=== PATIENT | female | born 1945 | race Caucasian/White ===

== ENCOUNTER 2019-06-05 14:05 | Inpatient (IN) | payer OTHER ==
[~2019-06-05] VITALS: Ht 170.2 cm; Wt 70.4 kg
--- NOTE | ~2019-06-05 | HEMODYNAMI ---
PATIENT:SNOW AYON MEDICAL RECORD: [id number] : 45 [id number] ADMISSION DATE: 06/06/19 Generatedon:06/07/201910:33 Patient name: SNOW AYON Patient #: [id number] SSN: [id number] : 1945 Date of study: 06/07/2019 Page: Of Hemodynamic Procedure Report Patient Data Patient Demographics Procedure consent was obtained First Name: SNOW Gender: Female Last Name: GABO : 1945 Patient #: [id number] Age: 74 year(s) Race: Unknown SSN: [id number] Additional ID: [id number] Contact details [address]: [address] [place] [address] State: [place] City: [place] Zip code: [address] Past Medical History Allergies: No known allergies Admission Admission Data Admission Date: 06/06/2019 Admission Time: 20:19 Admit Source: Other Room #: D.2117 Height (in.): 66.93 BSA: 1.81 (m2) Height (cm.): 170 BMI: 24.22 (kg/m2) Weight (lbs.): 154.32 Weight (kg.): 70 Lab Results Lab Result Date: 06/07/2019 Lab Result Time: 0:00 Biochemistry Name Units Result Min Max BUN mg/dl 11 --(-*--)-- 7 18 Creatinine mg/dl 1.2 --(---*)-- 0.6 1.3 eGFR ml/min 46 *-(----)-- 90 120 NONAFRICAN CBC Name Units Result Min Max Hematocrit % 38.8 *-(----)-- 42 54 Hemoglobin g/dl 12.5 *-(----)-- 13.5 17.5 Procedure Procedure Types Cath Procedure Diagnostic Procedure Sedation Charges Moderate Sedation up to 15 minutes PCI Procedure Coronary Stent Coronary Atherectomy Atherectomy w/Stent Coronary Initial Hemochron ACT Test Procedure Description Procedure Date Procedure Date: 06/07/2019 Procedure Start Time: 10:12 Procedure End Time: 10:30 Procedure Staff Name Function Rian Bolivar MD Performing Physician Dusty Maharaj RN Nurse Nu Engel RN Part Time Receptionist Joselin Turner RT Scrub Jacy Thomas RT Scrub Clint Rodriguez RT Monitor Procedure Data Cath Procedure Fluoroscopy Diagnostic fluoroscopy Total fluoroscopy Time: 3.5 time: 3.5 min min Diagnostic fluoroscopy Total fluoroscopy dose: 221 dose: 221 mGy mGy Contrast Material Contrast Material Type Amount (ml) Isovue 370 44 Entry Location Entry Primary Successful Side Size Upsize Upsize Entry Closure Succes sful Closure Location (Fr) 1 (Fr) 2 (Fr) Remarks Device Remarks Femoral Left 6 Fr Exoseal artery Short Procedure Complications No complications Procedure Medications Medication Administration Route Dosage 0.9% NaCl I.V. 100 ml/hr Oxygen etCO2 Nasal cannula 2 l/min Heparin Flush Bag added to field 1 bags (1000units/500ml NS) Lidocaine 2% added to field 20 Versed I.V. 1 mg Fentanyl I.V. 50 mcg Heparin Bolus I.V. 4000 units Hemodynamics Rest BSA: 1.81 (m2) O2 Consumption: Estimated: 246.16 (ml/min) O2 Consumption indexed : Estimated:136 (ml/min/m) Pre Cath Intra NCS Post Cath Vital Signs Time Heart Resp SPO2 etCO2 NIBP (mmHg) Rhythm Pain Sedation Rate (ipm) (%) (mmHg) Status Level (bpm) 9:59:53 75 13 92 0 136/81(111) NSR 0 (11) 10(A) , No pain 10:04:07 69 16 98 35.1 137/76(118) NSR 0 (11) 10(A) , No pain 10:08:21 68 11 98 32.1 131/76(104) NSR 0 (11) 10(A) , No pain 10:12:33 68 13 98 0.7 130/75(107) NSR 0 (11) 10(A) , No pain 10:16:45 69 12 98 35.9 139/76(121) NSR 0 (11) 9(A) , No pain 10:21:01 69 13 98 34.4 134/71(109) NSR 0 (11) 9(A) , No pain 10:25:11 70 14 99 35.2 148/79(126) NSR 0 (11) 10(A) , No pain 10:29:24 68 13 99 35.1 146/83(129) NSR 0 (11) 10(A) , No pain Medications Time Medication Route Dose Verified Delivered Reason Notes Effectiveness by by 9:58:09 0.9% NaCl I.V. 100 Dusty Dusty Per physician ml/hr Carol Ann Maharaj RN RN 9:58:19 Oxygen etCO2 2 Dusty Dusty for low 02 sats Nasal l/min Carol Ann Maharaj cannula RN RN 9:58:28 Heparin Flush added 1 Dusty Dusty used for Bag to bags Carol Ann Maharaj procedure (1000units/500ml field RN RN NS) 9:58:36 Lidocaine 2% added 20ml Dusty Dusty for local to vial Carol Ann Maharaj anesthetic RN RN 10:09:43 Versed I.V. 1 mg Dusty Dusty for sedation Carol Ann Mahaarj RN RN 10:09:52 Fentanyl I.V. 50 Dusty Dusty for sedation mcg Carol Ann Maharaj RN RN 10:16:04 Heparin Bolus I.V. 4000 Dusty Dusty for units Carol Ann Maharaj anticoagulation RN day habilitation specialist Log Time Note 9:39:58 Informed consent obtained and on chart 9:40:24 Nu Engel RN sent for patient. Start room use. 9:41:00 Procedure Status Urgent Heart Cath (IP). 9:41:02 Time tracking: Regular hours (M-F 7:00 - 5:00) 9:41:06 Plan of Care:Hemodynamics will remain stable., Cardiac rhythm will edgar in stable., Comfort level will be maintained., Respiratory function will remain adequate., Patient/ family verbilizes understanding of procedure., Procedure tolerated without complication., Recovers from procedure without complications.. 9:42:39 H&P Date Dictated: 06/07/2019 New H&P dictated by physician.. 9:43:53 Patient Weight : 154.32 lbs 9:44:10 Patient Height : 66.93 inches 9:48:14 Patient received from Med II to CCL 1 Alert and oriented. Tansferred to table in Supine position. 9:48:15 Warm blankets applied, and iman hugger turned on for patient comfort. 9:48:16 Correct patient and procedure confirmed by team. 9:48:16 ECG and BP/O2 sat monitors applied to patient. 9:50:54 Risk of Mortality: 1.8 9:51:06 Risk of blood transfusion: 3 9:51:10 Risk of LOAN: 8.6 9:51:22 Stress Test: no; N/A BRING BACK PCI 9:52:15 Pre-procedure instructions explained to patient. 9:52:15 Pre-op teaching completed and patient verbalized understanding. 9:52:17 Family in patients room. 9:52:19 Patient NPO since Midnight. 9:52:25 Patient allergic to No known allergies 9:52:27 Is the patient allergic to Iodine/contrast media? No. 9:52:28 Is patient on blood thinner?Yes 9:52:31 ACC The patient was administered the following blood thiners within the last 24 hours: ACCPlavix 9:52:33 Patient diabetic? Yes. 9:52:35 If diabetic: On Metformin? Yes 9:52:38 If on Metformin: Last Dose? 06/04/2019 9:52:41 Previous problem with sedation/anesthesia? No ? 9:52:42 Snore? Yes 9:52:43 Sleep apnea? No 9:52:44 Deviated septum? No 9:52:45 Opens mouth fully? Yes 9:52:46 Sticks out tongue? Yes 9:52:49 Airway obstruction? No ? 9:52:51 Dentures? No ? 9:52:59 Pre procedure: left dorsailis pedis pulse 1+ Palpable, but thready & we ak; easily obliterated 9:53:01 Patient pain scale 0/10 ?. 9:53:26 IV patent on arrival in right hand with 0.9% NaCl at [facility]. 9:54:02 Lab Result : BUN 11 mg/dl 9:54:02 Lab Result : Creatinine 1.2 mg/dl 9:54:02 Lab Result : eGFR NONAFRICAN 46 ml/min 9:54:03 Lab Result : Hemoglobin 12.5 g/dl 9:54:03 Lab Result : Hematocrit 38.8 % 9:54:07 Lab results completed and on chart. 9:54:30 Left groin area was prepped with chlora-prep and draped in sterile count includes the [facility] ion 9:54:39 Alarms reviewed by R. N. 9:54:40 Sharps counted by scrub and verified by R.N. 9:57:53 Use device set CATH PACK 9:57:54 ACIST Syringe (06658) opened to sterile field. 9:57:55 ACIST Hand Control (34345) opened to sterile field. 9:57:55 ACIST Manifold (41798) opened to sterile field. 9:57:56 Medline Cath Pack ([id number]) opened to sterile field. 9:57:56 Bag Decanter (2002S) opened to sterile field. 9:57:56 EMERALD Guide Wire (156-763) opened to sterile field. 9:58:09 0.9% NaCl 100 ml/hr I.V. was administered by Dusty Maharaj RN; Per physician; Verbal order read back and verified. 9:58:19 Oxygen 2 l/min etCO2 Nasal cannula was administered by Dusty Maharaj RN; for low 02 sats; Verbal order read back and verified. 9:58:19 CHOICE PT Extra Support 182cm wire ([id number]) opened to sterile field. 9:58:19 INFLATOR Merit BasixCompak (QL2886) opened to sterile field. 9:58:19 SHEATH 6FR Chireno (BCB448) opened to sterile field. 9:58:28 Heparin Flush Bag (1000units/500ml NS) 1 bags added to field was admini stered by Dusty Maharaj RN; used for procedure; Verbal order read back and verified. 9:58:36 Lidocaine 2% 20ml vial added to field was administered by Dusty layton RN; for local anesthetic; Verbal order read back and verified. 9:58:42 Vital chart was started 10:08:27 --------ALL STOP TIME OUT------ 10:08:28 Final Timeout: patient, procedure, and site verified with staff and rochelle patel. All members of the team are in agreement. 10:08:30 Left groin site verified by team. 10:08:33 Fire Safety Assessment: A--An alcohol-based skin anteseptic being used preoperatively., C--Open oxygen or nitrous oxide is being used., D--An ESU, laser, or fiber-optic light is being used. 10:08:38 Physical assessment completed. ASA score P 2 - A patient with mild syst emic disease as per Rian Bolivar MD. 10:08:41 3a) 45-59 Moderately reduced kidney function. 10:08:44 Maximum allowable contrast dose (3.7 X eGFR X 0.75)128 ml. 10:08:49 Sedation plan: IV Moderate Sedation Medication:Versed, Fentanyl 10::43 Versed 1 mg I.V. was administered by Dusty Maharaj RN; for sedation; Verbal order read back and verified. 10::52 Fentanyl 50 mcg I.V. was administered by Dusty Maharaj RN; for sedati on; Verbal order read back and verified. :: Procedure started. :: Full Disclosure recording started 10:12:10 GUIDE 6FR XBLAD 4.0 catheter ([id number]) opened to sterile field. 10:12:33 Local anesthetic to left femerol artery with Lidocaine 2% by Rian andujar MD.INITIAL ACCESS ONLY 10::41 A 6 Fr Short sheath was inserted into the Left Femoral artery 10:13:55 Zero performed for pressure channel P1 10:15:30 -ADVANC ED 10:15:31 -ADVANC ED 10:16:04 Heparin Bolus 4000 units I.V. was administered by Dusty Maharaj RN; f or anticoagulation; Verbal order read back and verified. 10:16:16 Pre PCI Site: [place] mLAD has 80% stenosis. 10:16:24 6 Fr XBLAD 4 guide catheter was inserted over the wire 10:16:36 CPTES wire advanced. 10:19:05 Inflate balloon Inflation number: 1 A EUPHORA 2.5 x 30 Balloon ([id number]) was prepped and advanced across the Mid LAD , then inflated to 17 JENNI for 0:11 (min:sec) . 10:19:16 Balloon removed over the wire. 10:20:09 LASER ELCA 0.9 Rx atherectomy catheter (171189) opened to sterile field . 10:21:32 Laser pass to mLAD with Fluence of 80 and Rate of 40. 10:21:46 Laser catheter removed. 10:23:17 Laser total treatment time: 44 minutes 0 seconds 10:23:23 Laser total pulses delivered: 1771 10:24:42 Place stent Inflation Number: 2 A GALILEO RX 2.75 x 38 stent ([id number] ) was prepped and advanced across the Mid LAD . The stent was deployed at 21 JENNI for 1:02 (min:sec) . 10:24:45 Stent catheter was removed intact over wire. 10:24:46 Wire removed. 10:24:47 Guide catheter removed. 10:24:53 Contrast amount:Isovue 370 44ml. 10:25:01 Sheath removed intact; hemostasis achieved with Exoseal to the Left Fem oral artery. 10:25:51 EXOSEAL 6Fr (EX600) opened to sterile field. 10:26:12 Procedure ended.(Physican Out) 10:26:23 Fluoroscopy time 03.50 minutes. 10:26:30 Flurop Dose total: 221 10:26:30 Fluoroscopy dose: 221 mGy 10:26:36 Dose Area Product 8559 mGy/cm. 10:26:40 Maximum allowable dose exceeded? No. 10:26:43 Sharps counted by scrub and verified by R.N. 10:26:44 Insertion/operative site no bleeding no hematoma. 10:26:48 Post-op/insertion site Left Femoral artery dressed using a 4 x 4 and Te gaderm. 10:26:52 Post left femerol artery:stable 10:26:53 Post Procedure Pulses reassessed and unchanged 10:27:02 Post procedure: left dorsailis pedis pulse 1+ Palpable, but thready & w eak; easily obliterated. 10:27:22 ACT drawn and resulted at 327 seconds. (normal therapeutic range 180-24 0 seconds). 10:29:30 Procedure type changed to Cath procedure, Diagnostic procedure, Sedatio n Charges, Moderate Sedation up to 15 minutes, PCI procedure, Coronary Stent, Coronary Atherectomy, Atherectomy w/Stent Coronary Initial, Hemochron ACT Test 10:30:15 Procedure and supply charges have been captured, reviewed, submitted an d are correct. 10:30:20 Procedure Complication : No complications 10:30:23 Vital chart was stopped 10:30:26 [facility] Findings: MVD- PCI performed (see procedure note) 10:30:31 Operative report dictated upon procedure completion. 10:30:32 See physician's report for complete and final results. 10:30:33 Report given to Pre/Post Procedure Room. 10:30:35 Patient transfered to Pre/Post Procedure Room with Stretcher. 10:30:37 Procedure ended. 10:30:37 Full Disclosure recording stopped 10:30:40 End room use (Document Last) Intervention Summary Intervention Notes Time ActionType Lesion and Equipment Used Action# Pressure Duration Attributes 10:19:05 Inflate Mid LAD EUPHORA 2.5 x 1 17 00:11 balloon 30 Balloon ([id number]) 10:24:42 Place stent Mid LAD GALILEO RX 2.75 x 2 21 01:02 38 stent ([id number]) Device Usage Item Name Manufacture Quantity Catalog Number Hospital Part Current M inimal Lot# / Charge Number Stock Stock Serial# Code ACIST Syringe Acist 1 51283 791905 583990 464529 2 0 (17505) Medical Systems Inc ACIST Hand Acist 1 19755 306294 351822 052891 5 Control Medical (66444) Systems Inc ACIST Manifold Acist 1 40932 360616 844161 772466 5 (42424) Medical Systems Inc Medline Cath Medline 1 [id number] 603035 72861 532882 5 Pack ([id number]) Bag Decanter Microtek 1 653917 32074 428904 5 (2002S) C8 MediSensors. EMERALD Guide Cardinal 1 502-186 085496 819237 032075 5 Wire (502455) Health CHOICE PT [place] 1 [id number] 297608 918536 305302 5 Extra Support Scientific 182cm wire ([id number]) INFLATOR Merit Merit 1 KP1548 345324 096940 977804 1 5 Gigit (JF7676) SHEATH 6FR Terumo 1 AGL530 558359 417443 021511 4 0 Chireno (NEJ941) GUIDE 6FR Cardinal 1 [id number] 112438 717985 119430 3 XBLAD 4.0 Health catheter ([id number]) EUPHORA 2.5 x Medtronic 1 [id number] 671349 037605 858990 5 [id number] 30 Balloon ([id number]) LASER ELCA 0.9 Ashley 1 110-004 224702 734038 902656 5 Rx atherectomy Healthcare catheter (475308) (958784) GALILEO RX 2.75 x Medtronic 1 [id number] 460935 7604342 820023 5 [id number] 38 stent ([id number]) EXOSEAL 6Fr Cardinal 1 EX600 017385 931497 465038 1 0 (EX600) Health Signature Audit [place] Stage Time Signature Unsigned Intra-Procedure 06/07/2019 Dusty 10:32:14 AM Carol Ann SILVERMAN Intra-Procedure 06/07/2019 Clint Rodriguez RT(R) 10:32:41 AM Intra-Procedure 06/07/2019 Rian Bolivar 10:33:03 AM [facility] [address] [place] [address]
--- NOTE | ~2019-06-05 | OP ---
PATIENT NAME: SNOW AYON MEDICAL RECORD: [id number] :45 LOCATION:[facility]STIE McnultyCL02 ADMISSION DATE:06/06/19 SURGEON: KRISTEN GRIGSBY MD DATE OF OPERATION: 06/07/2019 DATE OF SERVICE: 06/07/2019 PROCEDURES: 1. PTCA stent, laser atherectomy LAD. 2. Selective coronary angiography. INDICATION: Non-Q-wave myocardial infarction. DESCRIPTION OF PROCEDURE: After informed consent was obtained and after detailed explanation of risks, benefits as well as alternative therapies, the patient elected to proceed with angiogram and angioplasty. The left femoral area was prepped and draped in normal sterile fashion. Left femoral artery was cannulated via modified Seldinger technique with placement of 6-Lao sheath. All catheters exchanged through this sheath. FINDINGS: The left anterior descending has a 90% stenosis throughout the proximal vessel. Part of this is in-stent restenosis, addressed with a laser atherectomy catheter, 0.9 catheter, multiple passes were made at 80/40. Stenting was undertaken with a 2.75 x 38 mm Ambrosio. Result was 0% residual stenosis. OVERALL IMPRESSION: Successful percutaneous transluminal coronary angioplasty stent of the left anterior descending going from 90% initial stenosis to 0% residual. TRANSINT:[id number] Voice Confirmation ID: [id number] DOCUMENT ID: [id number] KRISTEN GRIGSBY MD CC: [id number] DICTATION DATE: 06/07/19 1033 BATHHOUSE KEEPER: 06/07/19 1124 ADM IN [facility] [address] [place] [address]
--- NOTE | ~2019-06-05 | DS ---
PATIENT:SNOW VNIES :45 MEDICAL RECORD: [id number] DISCHARGE SUMMARY ADMISSION DATE: 06/06/19 DISCHARGE DATE: 06/07/19 DIAGNOSES: 1. Non-Q-wave myocardial infarction. 2. Percutaneous transluminal coronary angioplasty stent right coronary artery and left anterior descending this admission. 3. Hypertension. 4. Hyperlipidemia. 5. Noninsulin-dependent diabetes. HOSPITAL COURSE: Mrs. Vines presents with a non-Q-wave myocardial infarction, underwent cardiac catheterization revealing critical disease of the RCA and LAD, underwent successful PTCA stent of both territories, was discharged home. Follow up in 1 month with the addition of Pravachol, Plavix, and aspirin to her medical regimen. TRANSINT:[id number] Voice Confirmation ID: [id number] DOCUMENT ID: [id number] KRISTEN GRIGSBY MD CC: [id number] DICTATION DATE: 06/07/19 1032 KNIT GOODS CUTTER HAND: 06/08/19 0220 DIS IN 06/07/19 [facility] [address] [place] [address]
--- NOTE | ~2019-06-05 | HEMODYNAMI ---
PATIENT:SNOW AYON MEDICAL RECORD: [id number] : 45 [facility] ADMISSION DATE: 06/05/19 Generatedon:06/06/20198:39 Patient name: SNOW AYON Patient #: [id number] SSN: DO B: 1945 Date of study: 06/06/2019 Page: Of Hemodynamic Procedure Report Patient Data Patient Demographics Procedure consent was obtained First Name: SNOW Gender: Female Last Name: GABO : 1945 Patient #: [id number] Age: 74 year(s) Race: Unknown Additional ID: [id number] Contact details [address]: [address] [place] [address] State: [place] City: [place] Zip code: [address] Past Medical History Allergies: No known allergies Admission Admission Data Admission Date: 06/05/2019 Admission Time: 16:25 Admit Source: Other Room #: D.2117 Procedure Procedure Types Cath Procedure Diagnostic Procedure LHC LHC w/Coronaries PCI Procedure Coronary Stent Coronary Stent Initial Procedure Description Procedure Date Procedure Date: 06/06/2019 Procedure Start Time: 8:00 Procedure End Time: 8:30 Procedure Staff Name Function Zaira Smith RT Scrub Nu Engel RN Nurse Rian Bolivar MD Performing Physician Clint Rodriguez RT Monitor Procedure Data Cath Procedure Fluoroscopy Diagnostic fluoroscopy Total fluoroscopy Time: 5.3 time: 5.3 min min Diagnostic fluoroscopy Total fluoroscopy dose: 311 dose: 311 mGy mGy Contrast Material Contrast Material Type Amount (ml) Isovue 370 105 Entry Location Entry Primary Successful Side Size Upsize Upsize Entry Closure Succes sful Closure Location (Fr) 1 (Fr) 2 (Fr) Remarks Device Remarks Femoral Right 6 Fr 6 Fr Exoseal artery Short Short Diagnostic catheters Device Type Used For End Catheter Placement MULTIPACK Pigtail 5 Fr LV Angiography catheter MULTIPACK JL 4.0 5Fr Left Coronary catheter Angiography MULTIPACK 3DRC 5Fr Right Coronary catheter Angiography Procedure Complications No complications Procedure Medications Medication Administration Route Dosage Oxygen etCO2 Nasal cannula 2 l/min Lidocaine 2% added to field 20 Heparin Flush Bag added to field 2 bags (1000units/500ml NS) 0.9% NaCl I.V. 100 ml/hr Versed I.V. 1 mg Fentanyl I.V. 50 mcg Heparin Bolus I.V. 4000 units Integrilin (Bolus I.V. 6.2 ml 2mg/ml) Nitroglycerin IC/IA I.C. 200 mcg Nitroglycerin IC/IA I.C. 200 mcg Cardene I.C. 300 mcg 0.9% NaCl I.V. bolus 250 ml Cardene I.C. 300 mcg Integrilin Drip I.V. drip 11.2 ml/hr (75mg/100ml) Versed I.V. 1 mg Fentanyl I.V. 50 mcg Hemodynamics Rest Heart Rate: 71 (bpm) Snapshots Pre Cath Intra NCS Post Cath Vital Signs Time Heart Resp SPO2 etCO2 NIBP (mmHg) Rhythm Pain Sedation Rate (ipm) (%) (mmHg) Status Level (bpm) 7:44:16 71 19 94 0 158/84(141) NSR 0 (11) 10(A) , No pain 7:48:36 72 19 94 0 161/92(136) NSR 0 (11) 10(A) , No pain 7:52:58 70 7 98 0 144/80(124) NSR 0 (11) 10(A) , No pain 7:57:12 69 13 96 38.6 138/82(110) NSR 0 (11) 10(A) , No pain 8:01:30 70 12 98 38.6 137/67(109) NSR 0 (11) 10(A) , No pain 8:05:41 70 19 96 43.2 124/67(106) NSR 0 (11) 9(A) , No pain 8:09:50 73 13 97 17.4 135/78(112) NSR w/ ST 0 (11) 9(A) Elevation , No pain 8:13:58 70 17 97 28.8 73/47(60) NSR w/ ST 0 (11) 9(A) Elevation , No pain 8:18:00 57 12 95 33.3 65/42(50) NSR w/ ST 0 (11) 9(A) Elevation , No pain 8:21:58 56 12 96 36.4 78/47(60) NSR w/ ST 0 (11) 9(A) Elevation , No pain 8:26:44 67 21 95 39.4 102/56(84) NSR w/ ST 0 (11) 10(A) Elevation , No pain Medications Time Medication Route Dose Verified Delivered Reason Notes Effectiveness by by 7:50:35 Oxygen etCO2 2 Rian Judge used for Nasal l/min Osmel Engel RN procedure cannula 7:50:41 Lidocaine 2% added 20ml Rian Modi for local to vial Osmel Bolivar MD anesthetic field 7:50:46 Heparin Flush added 2 Rianalexis Modi used for Bag to bags Osmel Bolivar MD procedure (1000units/500ml field NS) 7:50:55 0.9% NaCl I.V. 100 Rian Seguraie Per physician ml/hr Osmel Engel RN 7:58:48 Versed I.V. 1 mg Rian Judge for sedation Osmel Engel RN 7:58:54 Fentanyl I.V. 50 Rian Judge for sedation mcg Osmel Engel RN 8:04:24 Versed I.V. 1 mg Rian Modi for sedation Osmel Bolivar MD 8:04:27 Fentanyl I.V. 50 Rian Modi for sedation mcg Osmel Bolivar MD 8:07:26 Heparin Bolus I.V. 4000 Rian Judge for verifi ed units Osmel Engel RN anticoagulation with dr bolivar 8:11:25 Nitroglycerin I.C. 200 Rian Modi for IC/IA mcg Osmel Bolivar MD vasodilation 8:12:10 Integrilin I.V. 6.2 Rian Judge for wasted (Bolus 2mg/ml) ml Osmel Engel RN antiplatelet 3.8 ml therapy of vial 8:12:43 Nitroglycerin I.C. 200 Rian Modi for IC/IA mcg Osmel Bolivar MD vasodilation 8:14:20 Cardene I.C. 300 Rian Rian for mcg Osmel Bolivar MD vasodilation 8:19:00 0.9% NaCl I.V. 250 Rian Seguraie For hypotension bolus ml Osmel Engel RN 8:21:09 Cardene I.C. 300 Rian Rian for amy Bolivar MD vasodilation 8:22:49 Integrilin Drip I.V. 11.2 Rian Seguralius enrique for (75mg/100ml) drip ml/hr Osmel Engel RN antiplatelet therapy Procedure Log Time Note 7:29:27 Diagnostic Cath Status : Urgent 7:30:04 Nu Engel RN sent for patient. Start room use. 7:30:05 Time tracking: Regular hours (M-F 7:00 - 5:00) 7:30:09 Plan of Care:Hemodynamics will remain stable., Cardiac rhythm will remain stable., Comfort level will be maintained., Respiratory function will remain adequate., Patient/ family verbilizes understanding of procedure., Procedure tolerated without complication., Recovers from procedure without complications.. 7:33:33 Risk of Mortality: 1.8 7:33:37 Risk of blood transfusion: 3.0 7:33:42 Risk of LOAN: 8.6 7:35:16 3a) 45-59 Moderately reduced kidney function. 7:37:01 Patient received from Med II to CCL 1 Alert and oriented. Tansferred to table in Supine position. 7:37:05 Signed procedure consent form obtained from patient. 7:37:24 Correct patient and procedure confirmed by team. 7:37:24 Warm blankets applied, and iman hugger turned on for patient comfort. 7:37:25 ECG and BP/O2 sat monitors applied to patient. 7:43:09 Vital chart was started 7:43:10 Baseline sample Acquired. 7:43:15 Rhythm: sinus rhythm 7:43:17 Full Disclosure recording started 7:43:21 H&P Date Dictated: 06/06/2019 New H&P dictated by physician.. 7:43:22 Pre-procedure instructions explained to patient. 7:43:23 Pre-op teaching completed and patient verbalized understanding. 7:43:26 Family unavailable. 7:43:28 Patient NPO since Midnight. 7:43:39 Patient allergic to No known allergies 7:43:41 Is the patient allergic to Iodine/contrast media? No. 7:43:45 Is patient on blood thinner?Yes 7:43:48 ACC The patient was administered the following blood thiners within the last 24 hours: ACCPlavix 7:43:52 Patient not . Patient is over age 55. 7:43:54 Previous problem with sedation/anesthesia? No ? 7:43:56 Snore? Yes 7:43:58 Sleep apnea? No 7:43:59 Deviated septum? No 7:44:00 Opens mouth fully? Yes 7:44:14 Sticks out tongue? Yes 7:44:16 Airway obstruction? Yes ? 7:44:18 Dentures? No ? 7:44:23 If diabetic: On Metformin? Yes 7:44:23 Patient diabetic? Yes. 7:44:26 If on Metformin: Last Dose? 06/04/2019 7:44:35 Patient pain scale 0/10 ?. 7:44:38 IV patent on arrival in right hand with 0.9% NaCl at [facility]. 7:44:45 Right groin area was prepped with chlora-prep and draped in sterile fashion 7:44:46 Sharps counted by scrub and verified by R.N. 7:44:46 Alarms reviewed by R. N. 7:46:19 Pre procedure: right dorsailis pedis pulse 2+ Normal; easily identifiable; not easily obliterated 7:46:28 Lab results completed and on chart. 7:50:35 Oxygen 2 l/min etCO2 Nasal cannula was administered by Nu Engel RN; used for procedure; Verbal order read back and verified. 7:50:41 Lidocaine 2% 20ml vial added to field was administered by Rian Bolivar MD; for local anesthetic; Verbal order read back and verified. 7:50:46 Heparin Flush Bag (1000units/500ml NS) 2 bags added to field was administered by Rian Bolivar MD; used for procedure; Verbal order read back and verified. 7:50:55 0.9% NaCl 100 ml/hr I.V. was administered by Nu Engel RN; Per physician; Verbal order read back and verified. 7:57:19 Physician arrived 7:57:20 --------ALL STOP TIME OUT------ 7:57:21 Final Timeout: patient, procedure, and site verified with staff and physician. All members of the team are in agreement. 7:57:25 Right groin site verified by team. 7:57:29 Fire Safety Assessment: A--An alcohol-based skin anteseptic being used preoperatively., C--Open oxygen or nitrous oxide is being used., D--An ESU, laser, or fiber-optic light is being used. 7:57:56 Maximum allowable contrast dose (3.7 X eGFR X 0.75)127.65 ml. 7:58:01 Physical assessment completed. ASA score P 2 - A patient with mild systemic disease as per Rian Bolivar MD. 7:58:05 Sedation plan: IV Moderate Sedation Medication:Versed, Fentanyl 7:58:25 Use device set Femoral Dx 7:58:26 Bag Decanter (2002S) opened to sterile field. 7:58:26 ACIST Syringe (78585) opened to sterile field. 7:58:27 Medline Cath Pack ([id number]) opened to sterile field. 7:58:30 ACIST Manifold (24875) opened to sterile field. 7:58:30 ACIST Hand Control (24448) opened to sterile field. 7:58:31 Tegaderm 4 x 4 (1626W) opened to sterile field. 7:58:31 DIAGNOSTIC Multipack 5Fr catheter set ([id number]) opened to sterile field. 7:58:34 EMERALD Guide Wire (549-799) opened to sterile field. 7:58:48 Versed 1 mg I.V. was administered by Nu Engel RN; for sedation; Verbal order read back and verified. 7:58:54 Fentanyl 50 mcg I.V. was administered by Nu Engel RN; for sedation; Verbal order read back and verified. 7:59:46 Procedure started. 8:00:02 Local anesthetic to right femoral artery with Lidocaine 2% by Rian Bolivar MD.INITIAL ACCESS ONLY 8:00:12 A 6 Fr Short sheath was inserted into the Right Femoral artery 8:01:44 A MULTIPACK Pigtail 5 Fr catheter was advanced over the wire and used for LV Angiography. 8:01:49 LV angiography performed. 8:01:51 LV gram done using BARRETO 8:01:56 EF : 55 % 8:01:59 Catheter removed. 8:02:05 A MULTIPACK JL 4.0 5Fr catheter was advanced over the wire and used for Left Coronary Angiography. 8:02:08 LCA angiography performed. 8:04:24 Versed 1 mg I.V. was administered by Rian Bolivar MD; for sedation; Verbal order read back and verified. 8:04:27 Fentanyl 50 mcg I.V. was administered by Rian Bolivar MD; for sedation; Verbal order read back and verified. 8:05:13 Catheter removed. 8:05:19 A MULTIPACK 3DRC 5Fr catheter was advanced over the wire and used for Right Coronary Angiography. 8:05:23 RCA angiography performed. 8:05:24 Catheter removed. 8:05:29 ACC Pre-intervention CIARRA Flow is 3. 8:05:47 Pre PCI Site: [place] mRCA has 99% stenosis. 8:07:26 Heparin Bolus 4000 units I.V. was administered by Nu Engel RN; for anticoagulation; verified with dr bolivar Verbal order read back and verified. 8:10:54 Balloon removed over the wire. 8:11:25 Place stent Inflation Number: 1 A GALILEO RX 3.5 x 12 stent ([id number]) was prepped and advanced across the Mid RCA . The stent was deployed at 14 JENNI for 0:05 (min:sec) 0. 8:11:25 Nitroglycerin IC/IA 200 mcg I.C. was administered by Rian Bolivar MD; for vasodilation; Verbal order read back and verified. 8:11:30 SHEATH 6FR [place] (ZRZ120) opened to sterile field. 8:12:10 Integrilin (Bolus 2mg/ml) 6.2 ml I.V. was administered by Nu Engel RN; for antiplatelet therapy; wasted 3.8 ml of vial Verbal order read back and verified. 8:12:43 Nitroglycerin IC/IA 200 mcg I.C. was administered by Rian Bolivar MD; for vasodilation; Verbal order read back and verified. 8:13:17 Stent catheter was removed intact over wire. 8:14:20 Cardene 300 mcg I.C. was administered by Rian Bolivar MD; for vasodilation; Verbal order read back and verified. 8:15:30 SHEATH 6FR [place] (RGX768) opened to sterile field. 8:15:52 Wire removed. 8:19:00 0.9% NaCl 250 ml I.V. bolus was administered by Nu Engel RN; For hypotension; Verbal order read back and verified. 8:21:09 Cardene 300 mcg I.C. was administered by Rian Bolivar MD; for vasodilation; Verbal order read back and verified. 8:22:49 Integrilin Drip (75mg/100ml) 11.2 ml/hr I.V. drip was administered by Nu Engel RN; for antiplatelet therapy; Verbal order read back and verified. 8:23:44 ACT drawn and resulted at ? seconds. (normal therapeutic range 180-240 seconds). 8:23:56 EXOSEAL 6Fr (EX600) opened to sterile field. 8:25:16 Place stent Inflation Number: 2 A GALILEO RX 3.5 x 18 stent ([id number]) was prepped and advanced across the Mid RCA 0. The stent was deployed at 14 JENNI for 0:12 (min:sec) . 8:27:22 Sheath removed intact; hemostasis achieved with Exoseal to the Right Femoral artery. 8:27:22 Sheath upsized to a 6 Fr Short. 8:27:25 Procedure ended.(Physican Out) 8:27:53 act out of range 8:28:12 Fluoroscopy time 05.30 minutes. 8:28:19 Fluoroscopy dose: 311 mGy 8:28:19 Flurop Dose total: 311 8:28:32 Dose Area Product 12371 mGy/cm. 8:29:17 Contrast amount:Isovue 370 105ml. 8:29:22 Maximum allowable dose exceeded? Yes. 8:29:23 Sharps counted by scrub and verified by R.N. 8:29:25 Insertion/operative site no bleeding no hematoma. 8:29:27 Post-op/insertion site Right Femoral artery dressed using a 4 x 4 and Tegaderm. 8:29:30 Post right femoral artery:stable 8:29:32 Post Procedure Pulses reassessed and unchanged 8:29:34 Post procedure: right dorsailis pedis pulse 2+ Normal; easily identifiable; not easily obliterated. 8:29:38 Post procedure rhythm: sinus rhythm 8:29:46 Post procedure instruction explained to patient.Patient verbalizes understanding. 8:29:48 Procedure and supply charges have been captured, reviewed, submitted and are correct. 8:29:52 Procedure Complication : No complications 8:29:54 Vital chart was stopped 8:30:06 [facility] Findings: MVD- MD will discuss options w/ pt 8:30:08 See physician's report for complete and final results. 8:30:08 Operative report dictated upon procedure completion. 8:30:14 Report given to PCU. 8:30:34 Patient transfered to PCU with Bed. 8:30:36 Full Disclosure recording stopped 8:30:36 Procedure ended. 8:30:39 End room use (Document Last) 8:34:28 Procedure type changed to Cath procedure, Diagnostic procedure, LHC, C w/Coronaries, PCI procedure, Coronary Stent, Coronary Stent Initial 8:37:28 Admit Source: Other Intervention Summary Intervention Notes Time ActionType Lesion and Equipment Used Action# Pressure Duration Attributes 8:11:25 Place stent Mid RCA GALILEO RX 3.5 x 1 14 00:05 12 stent ([id number]) 8:25:16 Place stent Mid RCA GALILEO RX 3.5 x 2 14 00:12 18 stent ([id number]) Device Usage Item Name Manufacture Quantity Catalog Hospital Part [facility] Lot# / Number Charge Number Stock Stock Serial# Code ACIST Syringe Acist 1 24403 819390 242581 409852 20 (28140) Medical Systems Inc Bag Decanter Microtek 1 364684 64632 237918 5 (2001S) Medical Inc. Medline Cath Medline 1 [id number] 973152 93701 532527 5 Pack ([id number]) ACIST Hand Acist 1 89466 421845 095940 189823 5 Control Medical (36392) Systems Inc ACIST Manifold Acist 1 08946 532966 563376 732651 5 (50512) Medical Systems Inc DIAGNOSTIC Cardinal 1 NZ1310 923068 87125 610278 30 Multipack 5Fr Health catheter set (UY1159) Tegaderm 4 x 4 3M 1 1626W 584721 985567 977606 5 (1626W) EMERALD Guide Cardinal 1 502-455 441105 653758 241760 5 Wire (502-455) Health MULTIPACK Cardinal 1 791959 5 Pigtail 5 Fr Health catheter MULTIPACK JL Cardinal 1 576321 5 4.0 5Fr Health catheter MULTIPACK 3DRC Cardinal 1 901534 5 5Fr catheter Health GALILEO RX 3.5 x Medtronic 1 [id number] 596560 1894536 270964 5 [id number] 12 stent ([id number]) SHEATH 6FR Terumo 2 SXC078 198938 612048 129047 40 [place] (THG067) EXOSEAL 6Fr Cardinal 1 EX600 556668 968148 630264 10 (EX600) Health GALILEO RX 3.5 x Medtronic 1 [id number] 561795 0476876 485728 5 [id number] 18 stent ([id number]) Signature Audit [place] Stage Time Signature Unsigned Intra-Procedure 06/06/2019 Nu Engel RN 8:38:03 AM Intra-Procedure 06/06/2019 Clint PATTEN(R) 8:39:27 AM Intra-Procedure 06/06/2019 Rian Bolivar 8:39:47 AM [place] [id number] [place] [id number]
[2019-06-05 14:30] VITALS: BP 140/81
[2019-06-05 14:44] LABS: APTT 29.2 SECONDS (22.8-39.4); INR 1.08 (0.85-1.17); PROTIME 13.5 SECONDS (11.6-15.0)
[2019-06-05 14:46] LABS: CALC OSMOLALITY 283 mosm/kg (275-300); CALCIUM 8.8 mg/dL (8.5-10.1); CARBON DIOXIDE 29.2 mmol/L (21.0-32.0); CHLORIDE - SERUM 101 mmol/L (98-107); CREATININE - SERUM 1.2 mg/dL (0.6-1.3); GLUCOSE 250 mg/dL (74-106); POTASSIUM - SERUM 4.1 mmol/L (3.5-5.1); SODIUM 138 mmol/L (136-145); UREA NITROGEN 13 mg/dL (7-18); eGFR NON AFRICAN AMERICAN 46 mL/min (90-120)
[2019-06-05 14:51] LABS: BASOPHILS 0.1 % (0-2); EOSINOPHILS 0.3 % (0-7); HEMATOCRIT 41.7 % (36.0-48.0); HEMOGLOBIN 13.6 g/dL (12-16); IMMATURE GRANULOCYTES 0.1 % (0-5); LYMPHOCYTES 13.3 % (15-50); MCH 31.3 pg (26.0-34.0); MCHC 32.6 g/dL (31.0-37.0); MCV 96.1 fL (80.0-100.0); MEAN PLATELET VOLUME 11.5 fL (7.4-10.4); MONOCYTES 3.8 % (2-11); NEUTROPHILS 82.4 % (40-80); PLATELET COUNT 238 10x3/uL (130-400); RBC 4.34 10x6/uL (4.00-5.40); RDW 12.7 % (11.5-14.5); WBC 7.6 10x3/uL (4.8-10.8)
[2019-06-05 15:00] VITALS: BP 127/73
[2019-06-05 15:09] LABS: ALBUMIN 3.4 g/dL (3.4-5.0); ALKALINE PHOSPHATASE 99 U/L (46-116); ALT (SGPT) 20 U/L (10-68); CKMB 2.9 U/L (0.0-3.6); CREATINE KINASE 88 UL (21-215); MAGNESIUM - SERUM 1.8 mg/dL (1.8-2.4); PROTEIN - SERUM 6.8 g/dL (6.4-8.2)
[2019-06-05 15:14] LABS: TROPONIN-I 0.347 ng/mL (0.000-0.060)
[2019-06-05 15:30] VITALS: BP 132/81
[2019-06-05 16:09] VITALS: BP 146/97
--- NOTE | 2019-06-05 16:10 | NUR ---
20G NOTED TO RFA PT REPORTS WAS PUT IN @ [facility] , FLUSHED WITHOUT DIFFICULTY, CON'T TO MONITOR.
--- NOTE | 2019-06-05 16:30 | NUR ---
FSBS 206, NO COVERAGE GIVEN R/T PT NOT EATING/NPO STATUS.
--- NOTE | 2019-06-05 19:50 | NUR ---
PATIENT TRANSFERRED FROM ER. PATIENT IS ALERT AND ORIENTED, RESTING COMFORTABLY IN BED. RESPIRATIONS ARE EVEN AND UNLABORED. NO S/S OF DISTRESS. NO C/O PAIN. CALL LIGHT WITHIN REACH. DENIES NEEDS. WILL CPOC.
[2019-06-05] MEDS ORDERED: CELEBREX 100 M100 MG PO (19:57)
[2019-06-05] MEDS ORDERED: AMIODARONE HCL200 MG PO (19:57)
[2019-06-05] MEDS ORDERED: TRAMADOL 200 MG (19:57)
[2019-06-05] MEDS ORDERED: NORVASC10 MG PO (19:58)
[2019-06-05] MEDS ORDERED: GLUCOPHAGE500 MG PO (19:58)
[2019-06-05] MEDS ORDERED: LOTENSIN40 MG PO (19:58)
[2019-06-05] MEDS ORDERED: GABAPENTIN300 MG PO (19:58)
[2019-06-05 21:31] LABS: CKMB 2.4 U/L (0.0-3.6); CREATINE KINASE 76 UL (21-215)
[2019-06-05 21:35] LABS: TROPONIN-I 0.475 ng/mL (0.000-0.060)
[2019-06-05 22:45] VITALS: BP 129/77; Ht 170.2 cm; Wt 70.4 kg
[2019-06-06] VITALS: BP 107/60
--- NOTE | 2019-06-06 02:12 | NUR ---
PATIENT APPEARS TO BE SLEEPING RESPIRATIONS ARE EVEN AND UNLABORED. NO S/S OF DISTRESS. CALL LIGHT WITHIN REACH, WILL CPOC.
[2019-06-06 02:49] LABS: BASOPHILS 0.4 % (0-2); EOSINOPHILS 1.6 % (0-7); HEMATOCRIT 38.8 % (36.0-48.0); HEMOGLOBIN 12.5 g/dL (12-16); IMMATURE GRANULOCYTES 0.1 % (0-5); LYMPHOCYTES 44.1 % (15-50); MCH 31.2 pg (26.0-34.0); MCHC 32.2 g/dL (31.0-37.0); MCV 96.8 fL (80.0-100.0); MEAN PLATELET VOLUME 11.3 fL (7.4-10.4); NEUTROPHILS 42.8 % (40-80); PLATELET COUNT 227 10x3/uL (130-400); RBC 4.01 10x6/uL (4.00-5.40); RDW 12.9 % (11.5-14.5)
[2019-06-06 03:10] LABS: ALKALINE PHOSPHATASE 72 U/L (46-116); ALT (SGPT) 20 U/L (10-68); BILIRUBIN - TOTAL 0.89 mg/dL (0.2-1.3); CALCIUM 8.3 mg/dL (8.5-10.1); CARBON DIOXIDE 29.1 mmol/L (21.0-32.0); CHLORIDE - SERUM 104 mmol/L (98-107); CKMB 2.6 U/L (0.0-3.6); CREATINE KINASE 86 UL (21-215); CREATININE - SERUM 1.2 mg/dL (0.6-1.3); POTASSIUM - SERUM 4.4 mmol/L (3.5-5.1); PROTEIN - SERUM 5.9 g/dL (6.4-8.2); SODIUM 139 mmol/L (136-145); UREA NITROGEN 11 mg/dL (7-18); eGFR NON AFRICAN AMERICAN 46 mL/min (90-120)
[2019-06-06 03:11] LABS: CALC OSMOLALITY 280 mosm/kg (275-300); GLUCOSE 170 mg/dL (74-106); TROPONIN-I 0.651 ng/mL (0.000-0.060)
--- NOTE | 2019-06-06 07:30 | NUR ---
PRE-OPS GIVEN. TO MOTOR HOTEL MANAGER BY BED.
--- NOTE | 2019-06-06 09:01 | NUR ---
BACK FROM POOL HALL INSPECTOR. VS WNL. RIGHT GROIN STABLE WITHOUT BLEEDING OR HEMATOMA NOTED. WILL MONITOR.
--- NOTE | 2019-06-06 10:40 | HP ---
PATIENT: SNOW VINES MEDICAL RECORD: [id number] ACCOUNT: [id number] LOCATION:[address] : 45 ADMISSION DATE: 06/05/19 PCP: RANDALL ORELLANA HISTORY AND PHYSICAL EXAMINATION DIAGNOSES: 1. Non-Q-wave myocardial infarction. 2. Coronary artery disease. 3. Hypertension. 4. Hyperlipidemia. HISTORY OF PRESENT ILLNESS: Mrs. Vines presents with 1 week of increasing episodes of chest pain, chest discomfort compatible with angina. Troponin is positive for a non-Q-wave myocardial infarction. She has a history of coronary artery disease, PTCA stent in the past, she thinks approximately 6 years ago. PHYSICAL EXAMINATION: CONSTITUTIONAL/GENERAL APPEARANCE: Well nourished, well developed, appears stated age. EYES: Lids and conjunctivae noninjected. No discharge. No pallor. ENT: Lips within normal limit. No cyanosis. No pallor. NECK: Carotid arteries, bilateral normal upstroke. No bruits. No thrills. No jugular venous pressure or distention. CERVICAL LYMPH NODES: Nontender. Nonenlarged. THYROID: Not enlarged. No nodules. CARDIOVASCULAR: Precordial exam, nondisplaced. No heaves or pericardial thrills. Rate and rhythm, regular. Heart sounds, normal S1, normal S2. No S3, no gallop, no rub. Systolic murmur, not heard. Diastolic murmur, not heard. RESPIRATORY: Respiratory effort, unlabored. Normal curvature. No thoracic deformity. No chest wall tenderness. Percussion, resonant. Auscultation, clear. No wheezes, no rales, no rhonchi. ABDOMEN: Soft, nondistended, nontender. No abdominal pain, no vomiting and normal appetite. MUSCULOSKELETAL: No joint tenderness, normal gait, normal tone. SKIN: Warm and dry. OVERALL IMPRESSION: Non-Q-wave myocardial infarction. We will start beta blockade, statin, aspirin, and Plavix. Plan for cardiac catheterization in the a.m. TRANSINT:[id number] Voice Confirmation ID: [id number] DOCUMENT ID: [id number] KRISTEN GRIGSBY MD at 1040 CC: [id number] DICTATION DATE: 06/05/19 1609 ELECTRIC TOOL REPAIRER: 06/05/19 1828 ADM IN [facility] [address] [place] [address]
--- NOTE | 2019-06-06 10:40 | OP ---
PATIENT NAME: SNOW AYON MEDICAL RECORD: [id number] :45 LOCATION:D.M2 D.2117 ADMISSION DATE:06/05/19 SURGEON: KRISTEN GRIGSBY MD DATE OF OPERATION: 06/06/2019 PROCEDURES: 1. PTCA stent RCA. 2. Left heart catheterization. 3. Selective coronary angiography. 4. Left ventriculogram. INDICATION: Non-Q-wave myocardial infarction and coronary artery disease. PROCEDURE IN DETAIL: After informed consent was obtained and after a detailed description of the risks, benefits as well as alternative therapies, the patient elected to proceed with angiogram and angioplasty. The right femoral area was prepped and draped in normal sterile fashion. Right femoral artery was cannulated via modified Seldinger technique with placement of 6-[place] sheath. All catheters exchanged through this sheath. FINDINGS: Left ventriculogram was performed in a standard 30-degree BARRETO view reveals global hypokinesis, ejection fraction 35%. SELECTIVE CORONARY ANGIOGRAPHY: 1. Left main is with no significant angiographic disease. 2. Left anterior descending has a previously placed stent with 90% in-stent restenosis and stenosis proximal to the previously placed stent. 3. Left circumflex has mild irregularities, but no flow-limiting stenosis. 4. Right coronary has a 99% stenosis in the mid vessel. HOT DIP GALVANIZER STENT OF THE RCA: The stent used was a 3.5 x 15 and 3.5 x 12, both Ambrosio stents. Result was 0% residual stenosis. OVERALL IMPRESSION: Successful percutaneous transluminal coronary angioplasty stent of the right coronary artery going from 99% initial stenosis to 0% residual. PLAN: For PTCA stent of the LAD in the near future. TRANSINT:[id number] Voice Confirmation ID: [id number] DOCUMENT ID: [id number] KRISTEN GRIGSBY MD at 1040 CC: [id number] DICTATION DATE: 06/06/19829 DRAFTER CARTOGRAPHIC: 06/06/19 0919 ADM IN [place] [address] [place] [address]
[2019-06-06 12:30] VITALS: BP 121/70
--- NOTE | 2019-06-06 12:52 | NUR ---
BED REST UP. GROIN STABLE.
[2019-06-06 15:31] VITALS: BP 121/68
--- NOTE | 2019-06-06 19:10 | NUR ---
RECEIVED BEDSIDE REPORT. PATIENT IS ALERT AND ORIENTED, RESTING COMFORTABLY IN BED. RESPIRATIONS ARE EVEN AND UNLABORED. NO S/S OF DISTRESS. NO C/O PAIN. RIGHT GROIN SOFT, NO SIGNS OF SWELLING, BRUISING, BLEEDING. CALL LIGHT WITHIN REACH. DENIES NEEDS. FAMILY AT BEDSIDE. CALL LIGHT WITHIN REACH. WILL CPOC.
[2019-06-06 20:00] VITALS: BP 128/68
[2019-06-06 23:00] VITALS: BP 129/60
--- NOTE | 2019-06-07 02:26 | NUR ---
PATIENT APPEARS TO BE SLEEPING. RESPIRATIONS ARE EVEN AND UNLABORED. NO S/S OF DISTRESS. CALL LIGHT WITHIN REACH. WILL CPOC.
[2019-06-07 04:00] VITALS: BP 149/74
[2019-06-07 09:30] VITALS: BP 158/78
--- NOTE | 2019-06-07 09:30 | NUR ---
PRE-OPS GIVEN. TO MEDICARE SALES REPRESENTATIVE BY BED.
--- NOTE | 2019-06-07 10:40 | NUR ---
PT RECEIVED VIA STRETCHER FROM STOCK SUPERVISOR FOR RECOVERY. PT SLEEPING BUT VERBALLY AROUSABLE. PT DENIES PAIN OR DISCOMFORT. IV PATENT INFUSING VIA R ARM. PT PLACED ON CARDIAC MONITORS AND O2 ON AT 2L/NC. HR NSR RATE 69, BP 159/89, R 17, SAT 96. L GROIN W 6FR EXOCELE, DRESSING CDI NO BLEEDING OR S/S HEMATOMA NOTED. LEG PINK AND WARM, PEDAL PULSES PALPABLE. PT INSTRUCTED TO KEEP HEAD ON PILLOW AND LEG STRAIGHT, SHE VERBALIZED UNDERSTANDING. CALL LIGHT IN REACH.
[2019-06-07] MEDS ORDERED: PRAVACHOL20 MG PO (10:44)
[2019-06-07] MEDS ORDERED: PLAVIX75 MG PO (10:44)
[2019-06-07] MEDS ORDERED: ASPIRIN81 MG PO (10:57)
--- NOTE | 2019-06-07 11:03 | NUR ---
PT SLEEPING COMFORTABLY, FAMILY AT BEDSIDE. L GROIN SOFT, DRESSING CDI NO BLEEDING OR SWELLING NOTED. HR 63, BP 158/83, SAT 100. CALL LIGHT IN REACH.
--- NOTE | 2019-06-07 11:45 | NUR ---
PT RESTING IN SUPINE POSITION. L GROIN DRESSING CDI, SITE SOFT. NO BLEEDING OR S/S HEMATOMA NOTED. VSS. FAMILY AT BEDSIDE. SIPS OF DT COLA GIVEN. CALL LIGHT IN REACH
--- NOTE | 2019-06-07 12:15 | NUR ---
L GROIN SOFT, DRESSING REMAINS CDI NO BLEEDING OR HEMATOMA NOTED. HR 59, BP 165/83, RR 15. PT DENIES PAIN OR NEEDS. TOLERATING PO FLUIDS W/O NAUSEA. CALL LIGHT IN REACH, FAMILY AT BEDSIDE.
--- NOTE | 2019-06-07 12:45 | NUR ---
PT RESTING COMFORTABLY. L GROIN SOFT, DRESSING REMAINS CDI NO BLEEDING OR S/S HEMATOMA NOTED. LEG PINK AND WARM, PEDAL PULSES PALPABLE. PT TOLERATING PO FLUIDS W/O NAUSEA. FAMILY AT BS.
--- NOTE | 2019-06-07 13:15 | NUR ---
PT DOING WELL, DENIES PAIN OR NEEDS. L GROIN SOFT, DRESSING REMAINS CDI NO BLEEDING OR S/S HEMATOMA NOTED. VSS. HOB ELEVATED SLIGHTLY, SANDWICH TRAY AND DRINK SERVED. CALL LIGHT IN REACH, FAMILY AT BEDSIDE.
--- NOTE | 2019-06-07 13:45 | NUR ---
PT TOLERATED SANDWICH TRAY W/O NAUSEA. HR 61, BP 141/71, SAT 97 ON ROOM AIR. O2 REMOVED. L GROIN SOFT, NO BLEEDING OR SWELLING NOTED. PT DENIES NEEDS AT THIS TIME. CALL LIGHT IN REACH
--- NOTE | 2019-06-07 14:10 | NUR ---
DISCHARGE INSTRUCTIONS REVIEWED W PT AND DAUGHTER, BOTH VERBALIZED UNDERSTANDING. EXPLAINED IMPORTANCE OF GETTING PRESCRIPTIONS FILLED AND STARTING THEM BOTH TOMORROW. IV REMOVED W CATH INTACT, MONITORS REMOVED. 1420 PT UP TO DRESS FOR DISCHARGE.
--- NOTE | 2019-06-07 14:29 | NUR ---
PT TO BR VIA WC, VOIDING W/O DIFFICULITY. PT THEN DISCHARGED VIA WC TO DAUGHTER WAITING IN PRIVATE VEHICLE. PT HAD ALL BELONGINGS AND DISCHARGE FOLDER.
--- NOTE | 2019-06-11 07:57 | MORECARE ---
CASE MANAGEMENT DISCHARGE SUMMARY PATIENT: LILLIAN AYON UNIT: [id number] ADM DATE: 06/06/19 AGE: 74 : 45 SEX: F ROOM/BED: D.3470 AUTHOR: TRISH MEDLEY PHYSICIAN: REFERRING PHYSICIAN: KRISTEN GRIGSBY MD DATE OF SERVICE: 06/11/19 Discharge Plan Patient Name: [facility]ILLIAN AYON [facility] [facility] 1945 Planned Disposition: Home Anticipated Discharge Date: 06/07/19 Discharge Date: 06/07/2019 Expected LOS: 1 Initial Reviewer: [email or web address] Initial Review Date: 06/11/2019 Generated: 06/11/19 8:56 am Coverage Notice Reviewer: [email or web address] Griffin Haynes Notice Issued Date-Time: 06/05/2019 16:35 Notice Type: Medicare Outpatient Observation Notice Notice Delivered To: Patient Relationship to Patient: Self Print Decorator Name: Lillian Ayon Delivery Method: HAND - Hand Delivered Kristin Days: Prior Verbal Notification: Recipient Understood Notice: Yes Recipient Signature: Yes Med Rec Note Co-signed by Attending: Coverage Notice Comment: THOMAS delivered to and signed by patient. Original given to patient and placed on chart. Patient Name: LILLIAN AYON Page [phone] at 0757 All edits/amendments must be made on the electronic document DICTATION DATE: 06/11/19 0756 SUPERVISOR CONCRETE BLOCK PLANT: ARA 06/11/19 0756 RPT#: [id number] DC DATE:06/07/19 STATUS: DIS IN [facility] [address] [place] [address] END OF REPORT
== END 2019-06-07 14:32 | disposition home or self-care (01) | DRG 247 ==
LOC: OBSVTIME → D.OPS 14:05 → D.ER 14:05 → D.M2 16:25 → D.ER 16:25 → D.M2 16:25 → OBSVTIME 17:01 → D.ER 19:15 → EDSTATUS 06-06 08:15 → D.M2 06-06 15:31 → D.CLR 06-07 10:33 → D.M2 06-07 10:33 → D.CLR 06-07 14:32
PROVIDERS: Family Medicine; ADMIT Internal Medicine Interventional Cardiology; ATTEND Internal Medicine Interventional Cardiology
PROC: B2111ZZ Fluoroscopy of Multiple Coronary Arteries using Low Osmolar Contrast (ICD-10-PCS; 2019-06-06)
PROC: B2151ZZ Fluoroscopy of Left Heart using Low Osmolar Contrast (ICD-10-PCS; 2019-06-06)
PROC: 4A023N7 Measurement of Cardiac Sampling and Pressure, Left Heart, Percutaneous Approach (ICD-10-PCS; 2019-06-06)
PROC: 027035Z Dilation of Coronary Artery, One Artery with Two Drug-eluting Intraluminal Devices, Percutaneous Approach (ICD-10-PCS; principal; 2019-06-06 08:15)
PROC: 027034Z Dilation of Coronary Artery, One Artery with Drug-eluting Intraluminal Device, Percutaneous Approach (ICD-10-PCS; 2019-06-07)
PROC: 02C03ZZ Extirpation of Matter from Coronary Artery, One Artery, Percutaneous Approach (ICD-10-PCS; 2019-06-07)
DX: I21.4 Non-ST elevation (NSTEMI) myocardial infarction (principal); I25.10 Atherosclerotic heart disease of native coronary artery without angina pectoris; I10 Essential (primary) hypertension; E78.5 Hyperlipidemia, unspecified; E11.9 Type 2 diabetes mellitus without complications

== ENCOUNTER 2019-06-14 22:59 | Inpatient (IN) | payer OTHER ==
[~2019-06-14] VITALS: Ht 170.2 cm; Wt 75.3 kg
--- NOTE | ~2019-06-14 | OP ---
PATIENT NAME: SNOW AYON MEDICAL RECORD: [id number] :[birth year] LOCATION:D.M2 D.2123 ADMISSION DATE:06/15/19 SURGEON: KRISTEN GRIGSBY MD DATE OF OPERATION: 06/16/2019 PROCEDURES: 1. PTCA stent LAD. 2. PTCA stent left circumflex. 3. IFR. 4. Left heart catheterization. 5. Selective coronary angiography. 6. Left ventriculogram. INDICATION: Non-Q-wave myocardial infarction. DESCRIPTION OF PROCEDURE: After informed consent was obtained and after detailed explanation of risks, benefits as well as alternative therapies, the patient elected to proceed with angiogram and angioplasty. The right femoral area was prepped and draped in normal sterile fashion. Right femoral artery was cannulated via modified Seldinger technique with placement of 6-Irish sheath. All catheters exchanged through this sheath. FINDINGS: Left ventriculogram was for a standard 30-degree BARRETO view, reveals good cardiac wall motion, ejection fraction preserved at 50%. SELECTIVE CORONARY ANGIOGRAPHY: 1. Left main is with no significant angiographic disease. 2. Left anterior descending has previously placed stents, these are widely patent with no significant restenosis; however, after the previously placed stents, there is 90% to 95% stenosis. 3. The left circumflex has 70% stenosis proximally. IFR was abnormal. 4. The right coronary has previously placed stents, these are widely patent with no significant restenosis. No disease leone, no thrombosis. PTCA STENT OF THE LAD: The stent used was a 2.25 x 18 mm Ambrosio. Result was 0% residual stenosis. PTCA STENT OF THE LEFT CIRCUMFLEX: The stent used was a 3.5 x 12 mm [place]. Result was 0% residual stenosis. OVERALL IMPRESSION: Successful percutaneous transluminal angioplasty stent of the circumflex and LAD, both going from 70% to 95% initial stenosis to 0% residual. TRANSINT:[id number] Voice Confirmation ID: [id number] DOCUMENT ID: [id number] KRISTEN GRIGSBY MD CC: [id number] DICTATION DATE: 06/16/19 1059 CHAIR FINISHER: 06/16/19 1249 ADM IN [place] [address] [place] [address]
--- NOTE | ~2019-06-14 | HEMODYNAMI ---
PATIENT:SNOW AYON MEDICAL RECORD: [id number] : 45 LOCATION:[facility] D.[address] [facility]# [id number] ADMISSION DATE: 06/15/19 Generatedon:06/16/201911:04 Patient name: SNOW AYON Patient #: [id number] SSN: [id number] : 1945 Date of study: 06/16/2019 Page: Of Hemodynamic Procedure Report Patient Data Patient Demographics Procedure consent was obtained First Name: SNOW Gender: Female Last Name: GABO : 1945 Patient #: [id number] Age: 74 year(s) Race: SSN: [id number] Additional ID: [id number] Contact details [address]: [address] [place] [address] State: [place] City: [place] Zip code: [address] Past Medical History Allergies: No known allergies Admission Admission Data Admission Date: 06/15/2019 Admission Time: 13:50 Arrival Date: 06/16/2019 Arrival Time: 0:00 Admit Source: Other Insurance Payor: Private Room #: D.2123 health insurance [facility] #: [id number] Height (in.): 67 BSA: 1.87 (m2) Height (cm.): 170.18 BMI: 25.99 (kg/m2) Weight (lbs.): 165.94 Weight (kg.): 75.27 Lab Results Lab Result Date: 06/16/2019 Lab Result Time: 0:00 Biochemistry Name Units Result Min Max BUN mg/dl 13 --(--*-)-- 7 18 Creatinine mg/dl 1 --(--*-)-- 0.6 1.3 eGFR ml/min 57 *-(----)-- 90 120 NONAFRICAN Troponin l ng/ml 0.161 --(----)-* 0 0.06 CBC Name Units Result Min Max Hematocrit % 37.9 *-(----)-- 42 54 Hemoglobin g/dl 12.5 *-(----)-- 13.5 17.5 Procedure Procedure Types Cath Procedure Diagnostic Procedure [facility] w/Coronaries FFR/IVUS FFR Initial Sedation Charges Moderate Sedation up to 15 minutes PCI Procedure Coronary Stent Coronary Stent Initial x2 Hemochron ACT Test Procedure Description Procedure Date Procedure Date: 06/16/2019 Procedure Start Time: 10:39 Procedure End Time: 11:00 Procedure Staff Name Function Rian Bolivar MD Performing Physician Jacy Thomas RT Monitor Hannah Alarcon RT Monitor Mynor Vega RN Nurse Sonja Westbrook RT Scrub Indication Chest pain Procedure Data Cath Procedure Fluoroscopy Diagnostic fluoroscopy Total fluoroscopy Time: 4.9 time: 4.9 min min Diagnostic fluoroscopy Total fluoroscopy dose: 563 dose: 563 mGy mGy Contrast Material Contrast Material Type Amount (ml) Isovue 370 87 Entry Location Entry Primary Successful Side Size Upsize Upsize Entry Closure Succes sful Closure Location (Fr) 1 (Fr) 2 (Fr) Remarks Device Remarks Femoral Right 6 Fr Exoseal artery Short Estimated blood loss: 10 ml Diagnostic catheters Device Type Used For End Catheter Placement DIAGNOSTIC Pigtail 5Fr Procedure catheter ([id number]) DIAGNOSTIC 3DRC 5Fr Procedure catheter ([id number]) Procedure Complications No complications Procedure Medications Medication Administration Route Dosage Oxygen etCO2 Nasal cannula 2 l/min Heparin Flush Bag added to field 2 bags (1000units/500ml NS) 0.9% NaCl I.V. 100 ml/hr Lidocaine 2% added to field 20 Fentanyl I.V. 50 mcg Versed I.V. 1 mg Fentanyl I.V. 50 mcg Versed I.V. 1 mg Heparin Bolus I.V. 4000 units Hemodynamics Rest BSA: 1.87 (m2) HGB: 12.5 (g/dl) O2 Consumption: Estimated: 254.32 (ml/min) O2 Co nsumption indexed: Estimated:136 (ml/min/m) Pre Cath Intra NCS Post Cath Vital Signs Time Heart Resp SPO2 etCO2 NIBP (mmHg) Rhythm Pain Sedation Rate (ipm) (%) (mmHg) Status Level (bpm) 10:22:29 103 16 96 155/87(123) NSR 0 (11) 10(A) , No pain 10:26:47 77 16 99 135/77(118) NSR 0 (11) 10(A) , No pain 10:31:00 75 17 99 34.8 129/69(108) NSR 0 (11) 10(A) , No pain 10:35:09 78 17 99 16.6 126/78(104) NSR 0 (11) 10(A) , No pain 10:39:18 78 17 99 37.9 122/74(104) NSR 0 (11) 9(A) , No pain 10:43:26 78 16 98 38.6 122/73(94) NSR 0 (11) 9(A) , No pain 10:47:36 76 16 98 12.8 107/65(85) NSR 0 (11) 9(A) , No pain 10:51:40 77 16 98 12.1 114/64(92) NSR 0 (11) 9(A) , No pain 10:55:44 81 17 98 37.1 119/74(98) NSR 0 (11) 9(A) , No pain Medications Time Medication Route Dose Verified Delivered Reason Notes Effectiveness by by 10:20:47 Oxygen etCO2 2 Rian Mynor Per physician Nasal l/min Osmel Vega RN cannula 10:20:55 Heparin Flush added 2 Rian Mynor used for Bag to bags Osmel Vega RN procedure (1000units/500ml field NS) 10:21:04 0.9% NaCl I.V. 100 Rian Mynor Per physician ml/hr Osmel Vega RN 10:21:12 Lidocaine 2% added 20ml Rianalexis Donnellyy used for to vial Osmel Vega RN procedure field 10:36:38 Fentanyl I.V. 50 Rian Mynor for sedation mcg Osmel Vega RN 10:36:46 Versed I.V. 1 mg Rian Mynor for sedation Osmel Vega RN 10:40:23 Fentanyl I.V. 50 Rian Mynor for sedation mcg Osmel Vega RN 10:40:27 Versed I.V. 1 mg Rian Mynor for sedation Osmel Vega RN 10:45:52 Heparin Bolus I.V. 4000 Rian Mynor for units Osmel Vega RN anticoagulation Procedure Log Time Note 9:58:32 Informed consent obtained and on chart 9:59:11 Lab Result : BUN 13 mg/dl 9:59:11 Lab Result : Creatinine 1 mg/dl 9:59:11 Lab Result : eGFR NONAFRICAN 57 ml/min 9:59:11 Lab Result : Hemoglobin 12.5 g/dl 9:59:11 Lab Result : Hematocrit 37.9 % 9:59:18 Arrival Date: 06/16/2019 12:00:00 AM 9:59:21 Admit Source: Other 9:59:30 Insurance Payor : Private health insurance 10:01:08 Lab Result : Troponin l 0.161 ng/ml 10:01:37 Patient Height : 67 inches 10:02:02 Patient Weight : 165.94 lbs 10:05:09 Diagnostic Cath Status : Urgent 10:05:42 Indication : Chest pain 10:05:50 Sonja Westbrook RT(R) sent for patient. Start room use. 10:05:55 Procedure Status Urgent Heart Cath (IP). 10:06:05 Plan of Care:Hemodynamics will remain stable., Cardiac rhythm will remain stable., Comfort level will be maintained., Respiratory function will remain adequate., Patient/ family verbilizes understanding of procedure., Procedure tolerated without complication., Recovers from procedure without complications.. 10:06:12 Time tracking: Call back (After hours or weekends) 10:06:30 Lab results completed and on chart. 10:06:36 Stress Test: no; N/A ? 10:09:11 Risk of Mortality: 0.4 10:09:14 Risk of blood transfusion: 0.6 10:09:17 Risk of LOAN: 3.8 10:09:19 Alarms reviewed by R. N. 10:09:19 Sharps counted by scrub and verified by R.N. 10:09:50 H&P Date Dictated: 06/15/2019 Within 30 days and on chart.. 10:09:51 Pre-procedure instructions explained to patient. 10:09:52 Pre-op teaching completed and patient verbalized understanding. 10:13:59 Patient received from Med II to CCL 1 Alert and oriented. Tansferred to table in Supine position. 10:14:00 Warm blankets applied, and iman hugger turned on for patient comfort. 10:14:01 Correct patient and procedure confirmed by team. 10:14:02 ECG and BP/O2 sat monitors applied to patient. 10:14:06 Family in waiting room. 10:14:08 Patient NPO since Midnight. 10:14:34 Patient allergic to No known allergies 10:19:44 Is the patient allergic to Iodine/contrast media? No. 10:19:46 Was the patient premedicated? Yes 10:19:47 Is patient on blood thinner?Yes 10:19:50 ACC The patient was administered the following blood thiners within the last 24 hours: ACCAspirin, ACCPlavix 10:19:53 Patient diabetic? Yes. 10:19:55 If diabetic: On Metformin? No 10:20:01 Patient not . Patient is over age 55. 10:20:04 HCG/Urine : completed and on chart 10:20:05 ----Pre-sedation anethsthesia assessment.---- 10:20:08 Previous problem with sedation/anesthesia? No ? 10:20:10 Snore? No 10:20:12 Sleep apnea? No 10:20:13 Deviated septum? No 10:20:15 Opens mouth fully? Yes 10:20:16 Sticks out tongue? Yes 10:20:19 Airway obstruction? No ? 10:20:22 Dentures? No ? 10:20:29 Pre procedure: right dorsailis pedis pulse 2+ Normal; easily identifiable; not easily obliterated 10:20:32 Patient pain scale 0/10 ?. 10:20:47 Oxygen 2 l/min etCO2 Nasal cannula was administered by Mynor Vega RN; Per physician; Verbal order read back and verified. 10:20:55 Heparin Flush Bag (1000units/500ml NS) 2 bags added to field was administered by Mynor Vega RN; used for procedure; Verbal order read back and verified. 10:21:04 0.9% NaCl 100 ml/hr I.V. was administered by Mynor Vega RN; Per physician; Verbal order read back and verified. 10:21:08 IV patent on arrival in left antecubital with 0.9% NaCl at [facility]. 10:21:12 Lidocaine 2% 20ml vial added to field was administered by Mynor Vega RN; used for procedure; Verbal order read back and verified. 10:21:14 Right groin area was prepped with chlora-prep and draped in sterile fashion 10:21:16 Rhythm: sinus rhythm 10:21:23 Vital chart was started 10:21:24 Full Disclosure recording started 10:21:28 Use device set Femoral Dx 10:21:29 ACIST Syringe (79154) opened to sterile field. 10:21:30 Bag Decanter (2002S) opened to sterile field. 10:21:31 Medline Cath Pack ([id number]) opened to sterile field. 10:21:33 ACIST Hand Control (83636) opened to sterile field. 10:21:33 ACIST Manifold (47630) opened to sterile field. 10:21:39 Tegaderm 4 x 4 (1626W) opened to sterile field. 10:21:45 EMERALD Guide Wire (500-053) opened to sterile field. 10:22:00 SHEATH 6FR Niotaze (XQM746) opened to sterile field. 10:22:50 ACC Patient presents with Stable Angina CCS Anginal Class 2--Slight limitation of ordinary activity. 10:36:28 --------ALL STOP TIME OUT------ 10:36:29 Final Timeout: patient, procedure, and site verified with staff and physician. All members of the team are in agreement. 10:36:32 Right groin site verified by team. 10:36:37 Fire Safety Assessment: A--An alcohol-based skin anteseptic being used preoperatively., C--Open oxygen or nitrous oxide is being used., D--An ESU, laser, or fiber-optic light is being used. 10:36:38 Fentanyl 50 mcg I.V. was administered by Mynor Vega RN; for sedation; Verbal order read back and verified. 10:36:41 Physical assessment completed. ASA score P 2 - A patient with mild systemic disease as per Rian Bolivar MD. 10:36:46 Versed 1 mg I.V. was administered by Mynor Vega RN; for sedation; Verbal order read back and verified. 10:37:11 3a) 45-59 Moderately reduced kidney function. 10:37:15 Maximum allowable contrast dose (3.7 X eGFR X 0.75)158 ml. 10:37:19 Sedation plan: IV Moderate Sedation Medication:Versed, Fentanyl 10:38:34 Procedure started. 10:39:34 Local anesthetic to right femoral artery with Lidocaine 2% by Rian Bolivar MD.INITIAL ACCESS ONLY 10:39:44 A 6 Fr Short sheath was inserted into the Right Femoral artery 10:39:53 A DIAGNOSTIC Pigtail 5Fr catheter ([id number]) was advanced over the wire and used for Procedure. 10:40:00 Zero performed for pressure channel P1 10:40:16 LV gram done using BARRETO 10:40:23 Fentanyl 50 mcg I.V. was administered by Mynor Vega RN; for sedation; Verbal order read back and verified. 10:40:23 Injector settings: Ml/sec: 5, Volume: 15, 10:40:27 Versed 1 mg I.V. was administered by Mynor Vega RN; for sedation; Verbal order read back and verified. 10:41:17 EF : 50 % 10:42:00 Catheter removed. 10:42:03 A DIAGNOSTIC 3DRC 5Fr catheter (403375M) was advanced over the wire and used for Procedure. 10:42:16 RCA angiography performed. 10:42:41 Catheter removed. 10:42:42 GUIDE 6FR XBLAD 3.5 catheter ([id number]) opened to sterile field. 10:42:58 6 Fr xblad 3.5 guide catheter was inserted over the wire 10:43:09 LCA angiography performed. 10:43:49 Proceeding to intervention. 10:44:23 INFLATOR Merit BasixCompak (CM6234) opened to sterile field. 10:44:24 [place] Verrata Plus pressure wire (33146M) opened to sterile field. 10:44:28 CHOICE PT Extra Support 182cm wire ([id number]) opened to sterile field. 10:45:05 FFR/IFR wire advanced. 10:45:52 Heparin Bolus 4000 units I.V. was administered by Mynor Vega RN; for anticoagulation; Verbal order read back and verified. 10:46:32 Wire advanced across lesion. 10:48:39 mCirc lesion measured at .46 with IFR 10:49:29 Pre PCI Site: [place] mCirc has 70% stenosis. 10:50:50 Place stent Inflation Number: 1 A GALILEO RX 3.5 x 12 stent ([id number]) was prepped and advanced across the Mid CX . The stent was deployed at 13 JENNI for 0:00 (min:sec) . 10:51:10 Stent catheter was removed intact over wire. 10:52:04 Wire removed. 10:52:17 choice es 182 wire advanced. 10:52:53 Wire advanced across lesion. 10:53:16 Pre PCI Site: [place] mLAD has 95% stenosis. 10:54:11 Place stent Inflation Number: 1 A GALILEO RX 2.25 x 18 stent ([id number]) was prepped and advanced across the Mid LAD . The stent was deployed at 15 JENNI for 0:00 (min:sec) . 10:54:40 Inflation number: 2 The stent balloon was then re-inflated across the Mid LAD to 21 JENNI for 0:00 (min:sec) . 10:55:08 Stent catheter was removed intact over wire. 10:55:09 Wire removed. 10:55:14 Guide catheter removed. 10:55:24 Sheath removed intact; hemostasis achieved with Exoseal to the Right Femoral artery. 10:55:28 EXOSEAL 6Fr (EX600) opened to sterile field. 10:55:36 Procedure ended.(Physican Out) 10:55:56 Fluoroscopy time 04.90 minutes. 10:56:02 Flurop Dose total: 563 10:56:02 Fluoroscopy dose: 563 mGy 10:56:23 Contrast amount:Isovue 370 87ml. 10:56:25 Maximum allowable dose exceeded? No. 10:56:27 Sharps counted by scrub and verified by R.N. 10:56:39 Post right femoral artery:stable, soft, clean and dry 10:56:41 Post Procedure Pulses reassessed and unchanged 10:56:45 Post procedure: right dorsailis pedis pulse 2+ Normal; easily identifiable; not easily obliterated. 10:56:48 Post-procedure physical assessment completed. ASA score P 2 - A patient with mild systemic disease as per Rian Bolivar MD. 10:56:51 Post procedure rhythm: unchanged. 10:56:54 Estimated blood loss: 10 ml 10:57:00 ACT drawn and resulted at 305 seconds. (normal therapeutic range 180-240 seconds). 10:57:05 Post procedure instruction explained to patient.Patient verbalizes understanding. 10:57:06 Patient needs reinforcement of post procedure teaching. 10:57:58 Procedure type changed to Cath procedure, Diagnostic procedure, LHC, LHC w/Coronaries, FFR/IVUS, FFR Initial, Sedation Charges, Moderate Sedation up to 15 minutes, PCI procedure, Coronary Stent, Coronary Stent Initial x2, Hemochron ACT Test 10:58:33 Procedure and supply charges have been captured, reviewed, submitted and are correct. 10:58:38 Procedure Complication : No complications 10:58:45 [facility] Findings: MVD- PCI performed (see procedure note) 10:58:47 Operative report dictated upon procedure completion. 10:58:48 See physician's report for complete and final results. 10:58:50 Report given to [facility]. 10:58:53 Patient transfered to [facility] with Bed. 10:59:03 Vital chart was stopped 11:00:03 Procedure ended. 11:00:03 Full Disclosure recording stopped 11:00:13 ACC-PCI Only Patient was given prescriptions, or instructed by Rian Bolivar MD to start/continue the following medications upon discharge: Plavix 11:02:50 End room use (Document Last) 11:03:08 End room use (Document Last) 11:03:45 End room use (Document Last) Intervention Summary Intervention Notes Time ActionType Lesion and Equipment Used Action# Pressure Duration Attributes 10:50:50 Place stent Mid CX GALILEO RX 3.5 x 1 13 00:00 12 stent ([id number]) 10:54:11 Place stent Mid LAD GALILEO RX 2.25 x 1 15 00:00 18 stent ([id number]) 10:54:40 Reinflate Mid LAD GALILEO RX 2.25 x 2 21 00:00 stent 18 stent balloon ([id number]) Device Usage Item Name Manufacture Quantity Catalog Number Hospital Part Current Minimal Lot# / Charge Number Stock Stock Serial# Code ACIST Syringe Acist 1 13734 856268 598057 576601 20 (22584) Medical Systems Inc Bag Decanter Microtek 1 2001S 441186 61472 560875 5 () Medical Inc. Medline Cath Medline 1 [id number] 991166 43790 185193 5 Pack ([id number]) ACIST Hand Acist 1 98072 884871 669236 530728 5 Control Medical (44567) Systems Inc ACIST Manifold Acist 1 37001 860937 710136 413724 5 (60235) Medical Systems Inc Tegaderm 4 x 4 3M 1 1626W 359359 823097 643825 5 (1626W) EMERALD Guide Cardinal 1 502-455 703208 205015 716767 5 Wire (502-455) Health SHEATH 6FR Terumo 1 LYE772 718126 098835 295445 40 Niotaze (QPU181) DIAGNOSTIC Cardinal 1 507205G 633402 635048 892830 5 Pigtail 5Fr Health catheter (337472B) DIAGNOSTIC Cardinal 1 249290W 412602 506052 650669 9 3DRC 5Fr Health catheter (986299H) GUIDE 6FR Cardinal 1 33071018 762477 277505 798101 10 XBLAD 3.5 Health catheter (37091504) INFLATOR Merit Merit 1 QQ9224 873172 877194 996216 15 [facility] Medical (UE7035) [place] 1 10678W 110237 416789735 712214 5 Verrata Plus pressure wire (29109A) CHOICE PT [place] 1 [id number] 540228 816728 249803 5 Extra Support Scientific 182cm wire (2016588H8) GALILEO RX 3.5 x Medtronic 1 [id number] 561096 0396572 709535 5 [id number] 12 stent ([id number]) GALILEO RX 2.25 x Medtronic 1 [id number] 672736 3654301 240423 5 [id number] 18 stent ([id number]) EXOSEAL 6Fr Cardinal 1 EX600 859512 709462 831938 10 (EX600) Health Signature Audit [place] Stage Time Signature Unsigned Intra-Procedure 06/16/2019 Hannah Alarcon 11:03:08 AM RT(R) Intra-Procedure 06/16/2019 Mynor Vega 11:03:45 AM RN Intra-Procedure 06/16/2019 Rian Bolivar 11:04:07 AM Signatures Performing Physician : Signature : Rian Bolivar MD Date : Time : Monitor : Jacy Thomas Signature : RT Date : Time : Monitor : Hannah Young Signature : RT Date : Time : Nurse : Mynor Vega RN Signature : Date : Time : [address] [place] [address]
--- NOTE | ~2019-06-14 | DS ---
PATIENT:SNOW VINES :45 MEDICAL RECORD: [id number] DISCHARGE SUMMARY ADMISSION DATE: 06/15/19 DISCHARGE DATE: 06/16/19 DATE OF DISCHARGE: 06/16/2019 DIAGNOSES: 1. Non-Q-wave myocardial infarction. 2. Coronary artery disease. 3. Percutaneous transluminal coronary angioplasty and stent left anterior descending and circumflex this admission. HOSPITAL COURSE: Ms. Vines presents with recurrent chest pain and non-Q-wave myocardial infarction, found to have critical disease of the LAD and significant disease of circumflex, underwent successful PTCA and stent of both territories, was discharged home with no recurrent angina. Follow up with [facility] as previously scheduled in 1 month. TRANSINT:[id number] Voice Confirmation ID: [id number] DOCUMENT ID: [id number] KRISTEN GRIGSBY MD CC: [id number] DICTATION DATE: 06/16/19 1100 TUYERE FITTER: 06/16/192219 DIS IN 06/16/19 [place] [id number] [place] [id number]
--- NOTE | ~2019-06-14 | EC ---
PATIENT:SNOW AYON DATE OF SERVICE: 06/15/19 SEX: F MEDICAL RECORD: [id number] DATE OF : 45 LOCATION:D.M2 D.212 AGE OF PATIENT: 74 ADMISSION DATE: 06/15/19 REFERRING PHYSICIAN: INTERPRETING PHYSICIAN: KRISTEN BOLIVAR MD ECHOCARDIOGRAM REPORT ECHO CHARGES 4 ECHO COMPLETE Date: 06/15/19 CLINICAL DIAGNOSIS: AK ECHOCARDIOGRAPHIC MEASUREMENTS (adult normal given) AC root (d.<3.7cm) 2.4 cm LV Septum d (<1.2 cm> 0.7 cm Valve Excursion 1.4 cm LV Septum (systole) 0.9 cm Left Atria (s.<4.0cm> 2.9 cm LVPW d(<1.2cm) 1.2 cm RV (d.<2.3cm) 2.6 cm LVPW (sytole) 1.5 cm LV diastole(<5.6CM) 5.7 cm MV E-F(>70mm/sec) cm LV systole 4.9 cm LVOT Diameter 2.1 cm MV exc.(>10mm) cm Est.ejection fraction (50-75%) % DOPPLER: LVIT cm/sec A 78 cm/sec E 50 cm/sec LA cm/sec RVSP 34.3 mmHg LVOT 90 cm/sec AOP1/2T m/s Asc. Ao 156 cm/sec RVOT 90 cm/sec RA cm/sec PA 78 cm/sec AV Gradient Peak 9.7 mmHg AV Mean 5.6 mmHg AV Area 2.4 cm MV Gradient Peak 2.1 mmHg MV Mean 1.1 mmHg MV Area cm COMMENTS: Insulation Board Head Saw Operator: Quin [facility] Payroll Clerk: 1 Dr. Bolivar TAPE# PACS Pericardial Effusion N DATE OF SERVICE: 06/15/2019 FINDINGS: 1. Left ventricular chamber size is within normal limits. Left ventricular systolic function is normal at 50%. 2. Left atrium, right atrium, and right ventricle chamber sizes are within normal limits. 3. Valvular structures have normal structure and motion. 4. Doppler interrogation reveals no significant valvular insufficiency or stenosis. ECHOCARDIOGRAM REPORT [id number] SNOW AYON 5. No evidence of pericardial effusion or left ventricular thrombus. TRANSINT:[id number] Voice Confirmation ID: [id number] DOCUMENT ID: [id number] KRISTEN BOLIVAR MD CC: [id number] DICTATION DATE: 06/16/19 1226 ROUND CUTTER OPERATOR: 06/16/19 1540 DIS IN 06/16/19 [place] [id number] [place] [id number]
[~2019-06-14 22:59] MED LIST: AMIODARONE HCL200 MG PO; ASPIRIN81 MG PO; CELEBREX 100 M100 MG PO; GABAPENTIN300 MG PO; GLUCOPHAGE500 MG PO; LOTENSIN40 MG PO; NORVASC10 MG PO; PLAVIX75 MG PO; PRAVACHOL20 MG PO; TRAMADOL 200 MG PO
[2019-06-14 23:24] LABS: BASOPHILS 0.3 % (0-2); EOSINOPHILS 1.8 % (0-7); HEMATOCRIT 37.9 % (36.0-48.0); HEMOGLOBIN 12.5 g/dL (12-16); IMMATURE GRANULOCYTES 0.2 % (0-5); LYMPHOCYTES 29.2 % (15-50); MCV 96.9 fL (80.0-100.0); MEAN PLATELET VOLUME 10.9 fL (7.4-10.4); MONOCYTES 9.4 % (2-11); NEUTROPHILS 59.1 % (40-80); PLATELET COUNT 244 10x3/uL (130-400); RBC 3.91 10x6/uL (4.00-5.40); WBC 6.6 10x3/uL (4.8-10.8)
[2019-06-14 23:32] LABS: APTT 27.9 SECONDS (22.8-39.4); CALC OSMOLALITY 283 mosm/kg (275-300); CALCIUM 9.6 mg/dL (8.5-10.1); CARBON DIOXIDE 28.5 mmol/L (21.0-32.0); CHLORIDE - SERUM 102 mmol/L (98-107); GLUCOSE 214 mg/dL (74-106); INR 1.01 (0.85-1.17); PROTIME 12.8 SECONDS (11.6-15.0); SODIUM 139 mmol/L (136-145); UREA NITROGEN 13 mg/dL (7-18); eGFR NON AFRICAN AMERICAN 57 mL/min (90-120)
[2019-06-14 23:53] LABS: ALBUMIN 3.5 g/dL (3.4-5.0); ALKALINE PHOSPHATASE 116 U/L (46-116); ALT (SGPT) 19 U/L (10-68); BILIRUBIN - TOTAL 0.65 mg/dL (0.2-1.3); CKMB 1.5 U/L (0.0-3.6); CREATINE KINASE 84 UL (21-215); MAGNESIUM - SERUM 1.8 mg/dL (1.8-2.4)
[2019-06-14 23:56] LABS: TROPONIN-I 0.161 ng/mL (0.000-0.060)
--- NOTE | 2019-06-14 23:57 | NUR ---
REC'D CRITICAL TROPONIN 0.161. RELAYED TO DR HERNANDEZ
[2019-06-15 00:19] LABS: APPEARANCE CLEAR (CLEAR); BILIRUBIN NEGATIVE (NEGATIVE); COLOR YELLOW (YELLOW); GLUCOSE 100 mg/dL (NEGATIVE); KETONE NEGATIVE (NEGATIVE); NITRITE NEGATIVE (NEGATIVE); PROTEIN NEGATIVE (NEGATIVE); UROBILINOGEN NORMAL (NORMAL)
--- NOTE | 2019-06-15 02:14 | NUR ---
I have reviewed this patient and I concur with the Shift Assessment completed by the Licensed Practical Nurse today this shift.
[2019-06-15] MEDS ORDERED: MACROBID100 MG PO (02:25)
--- NOTE | 2019-06-15 02:41 | NUR ---
ADMIT TO ROOM 2123 FROM ER. ALERT/ORIENTED. [facility] WITH HEARING AIDE TO LEFT EAR. ACCOMPANIED BY DAUGHTER AND GRANDSON. ADMISSION ASSESSMENT AND HISTORY COMPLETED. HOME MEDS REVIEWED AND UPDATED. PLAN OF CARE INITIATED. CALL LIGHT IN REACH.
[2019-06-15 02:50] VITALS: BP 138/77; BMI 24.5
[2019-06-15 06:49] LABS: TROPONIN-I 0.147 ng/mL (0.000-0.060)
[2019-06-15 08:50] VITALS: BP 14/72
[2019-06-15 11:41] VITALS: Ht 170.2 cm; Wt 75.3 kg
[2019-06-15 11:59] VITALS: BP 104/59
--- NOTE | 2019-06-15 14:38 | NUR ---
CONSENTS SIGNED FOR [facility]. WILL CONT. PLAN OF CARE.
[2019-06-15 16:41] VITALS: BP 123/62
--- NOTE | 2019-06-15 19:15 | NUR ---
RECEIVED REPORT, WILL ASSUME CARE OF PT, WATCHING TV, DENIES ANY NEEDS AT THIS TIME, BED IS LOW, SRX2, CALL LIGHT IN REACH, WILL CONTINUE PLAN OF CARE
[2019-06-15 20:00] VITALS: BP 113/62
[2019-06-16] VITALS: BP 104/64
[2019-06-16 04:00] VITALS: BP 122/62
--- NOTE | 2019-06-16 04:40 | NUR ---
I have reviewed this patient and I concur with the Shift Assessment completed by the Licensed Practical Nurse today this shift.
--- NOTE | 2019-06-16 07:20 | NUR ---
RECIEVE REPORT. ALERT AND ORIENTED X4. SITTING UP IN BED WATCHING TV. CONSENTS FOR INFANTRYMAN SIGNED ON CHART. NO SIGNS OF DISTRESS. CONTINUE PLAN OF CARE AND SAFETY PRECAUTIONS.
[2019-06-16 08:48] VITALS: BP 121/64
--- NOTE | 2019-06-16 10:11 | NUR ---
TAKEN TO SPANISH TUTOR VIA BED.
--- NOTE | 2019-06-16 10:58 | HP ---
PATIENT: SNOW AYON MEDICAL RECORD: [id number] ACCOUNT: [id number] LOCATION:[facility] D.[id number] : 45 ADMISSION DATE: 06/15/19 PCP: RANDALL ORELLANA HISTORY AND PHYSICAL EXAMINATION DIAGNOSES: 1. Non-Q-wave myocardial infarction. 2. Coronary artery disease. 3. Recent percutaneous transluminal coronary angioplasty stent of right coronary artery, left anterior descending. 4. Hypertension. 5. Hyperlipidemia. 6. Noninsulin-dependent diabetes. 7. Paroxysmal atrial fibrillation. HISTORY OF PRESENT ILLNESS: Mrs. Ayon presents with recurrent chest pain. She recently presented with a myocardial infarction, had critical disease of the RCA and LAD. In reviewing her film, she has hemodynamically significant disease in multiple places of her coronaries. Clearly, the worst 2 areas were addressed with transcatheter revascularization. There are multiple other areas of significant stenosis. Most likely her ongoing pain is the distal LAD, could possibly be the circumflex or the distal RCA as well. She did have Imdur 60 mg b.i.d. added to her current medical regimen. The pain has improved; however, she still had pain this morning and she does have a positive troponin. PHYSICAL EXAMINATION: CONSTITUTIONAL/GENERAL APPEARANCE: Well nourished, well developed, appears stated age. EYES: Lids and conjunctivae noninjected. No discharge. No pallor. ENT: Lips within normal limit. No cyanosis. No pallor. NECK: Carotid arteries, bilateral normal upstroke. No bruits. No thrills. No jugular venous pressure or distention. CERVICAL LYMPH NODES: Nontender. Nonenlarged. THYROID: Not enlarged. No nodules. CARDIOVASCULAR: Precordial exam, nondisplaced. No heaves or pericardial thrills. Rate and rhythm, regular. Heart sounds, normal S1, normal S2. No S3, no gallop, no rub. Systolic murmur, not heard. Diastolic murmur, not heard. RESPIRATORY: Respiratory effort, unlabored. Normal curvature. No thoracic deformity. No chest wall tenderness. Percussion, resonant. Auscultation, clear. No wheezes, no rales, no rhonchi. ABDOMEN: Soft, nondistended, nontender. No abdominal pain, no vomiting and normal appetite. MUSCULOSKELETAL: No joint tenderness, normal gait, normal tone. SKIN: Warm and dry. OVERALL IMPRESSION: Continued angina pain, multiple areas of continued hemodynamically significant stenosis, especially distal disease. We will continue the Imdur, repeat coronary angiography in the a.m. with hopes of continued transcatheter revascularization. TRANSINT:[id number] Voice Confirmation ID: [id number] DOCUMENT ID: [id number] HISTORY AND PHYSICAL [id number] SNOW AYON, KRISTEN BASURTO at 1058 CC: [id number] DICTATION DATE: 06/15/19 1150 TUG CAPTAIN: 06/15/19 1208 ADM IN [facility] [address] [id number]
--- NOTE | 2019-06-16 11:19 | NUR ---
RETURN TO ROOM VIA BED FROM ARSON AND BOMB INVESTIGATOR. SEDATED. AROUSES TO VOICE. FAMILY AT BEDSIDE. RT GROIN DRESSING CLEAN DRY INTACT. FREE FROM BLEEDING. FREE FROM HEMATOMA. PULSE PALPABLE BILATERALLY. BP-139/75, HR-80 SINUS RYTHM. O2 95%RA. RESPIRATION NONLABORED. CONTINUE PLAN OF CARE AND SAFETY PRECAUTIONS.
[2019-06-16 13:08] VITALS: BP 114/67
--- NOTE | 2019-06-16 15:26 | NUR ---
ALERT AND ORIENTED X4. SITTING UP IN BED. FAMILY AT BEDSIDE. DISCHARGE INSTRUCTIONS GIVEN VERBALLY AND WRITTEN. DISCHARGE PAPERS SIGNED ON CHART. DC LT FA IV TIP INTACT. RT GROIN DRESSING CLEAN DRY INTACT. FREE FROM BLEEDING. FREE FROM HEMATOMA. ESCORT TO RIDE VIA WHEELCHAIR. REMAINS FREE FROM INJURY.
== END 2019-06-16 15:28 | disposition home or self-care (01) | DRG 247 ==
LOC: D.ER 22:59 → OBSVTIME 06-15 01:33 → D.M2 06-15 01:33
PROVIDERS: Emergency Medicine; ADMIT Internal Medicine Interventional Cardiology; ATTEND Internal Medicine Interventional Cardiology
PROC: B2111ZZ Fluoroscopy of Multiple Coronary Arteries using Low Osmolar Contrast (ICD-10-PCS; 2019-06-16)
PROC: B2151ZZ Fluoroscopy of Left Heart using Low Osmolar Contrast (ICD-10-PCS; 2019-06-16)
PROC: 4A033BC Measurement of Arterial Pressure, Coronary, Percutaneous Approach (ICD-10-PCS; 2019-06-16)
PROC: 027135Z Dilation of Coronary Artery, Two Arteries with Two Drug-eluting Intraluminal Devices, Percutaneous Approach (ICD-10-PCS; principal; 2019-06-16 10:30)
PROC: 4A023N7 Measurement of Cardiac Sampling and Pressure, Left Heart, Percutaneous Approach (ICD-10-PCS; 2019-06-16 10:30)
DX: I21.4 Non-ST elevation (NSTEMI) myocardial infarction (principal); I25.10 Atherosclerotic heart disease of native coronary artery without angina pectoris; I10 Essential (primary) hypertension; E78.5 Hyperlipidemia, unspecified; E11.9 Type 2 diabetes mellitus without complications; I48.0 Paroxysmal atrial fibrillation